=== PATIENT | male | born 1960 | race Caucasian/White ===

== ENCOUNTER 2017-05-11 02:39 | Observation (INO) | payer OTHER, SELFPAY ==
[2017-05-11] VITALS (16 sets, daily range): BP systolic 110–144; BP diastolic 65–96; PULSE 56–90; RESP 12–16; TEMP 36.4–36.8; O2SAT 96–100; BMI 30.2; BMI 30.4
--- NOTE | 2017-05-11 02:52 | RAD_ITS ---
STUDY: X-RAY CHEST REASON FOR EXAM: Male, 56 years old. Chest pain TECHNIQUE: Single frontal view of the chest. COMPARISON: 10/27/2016 FINDINGS: The lungs are clear and expanded. There is no demonstrated pleural abnormality. Normal size heart. Normal mediastinum and monster. Normal visualized pulmonary arteries. Normal visualized aortic arch and descending thoracic aorta. Normal visualized thoracic spine. Normal visualized ribs, clavicles, and shoulders. There is no demonstrated abnormality of the visualized soft tissue structures of the upper abdomen. RAD/Chest 1 View (Portable) IMPRESSION: Normal x-ray examination of the chest. Electronically Signed: Thuan Fernando MD at 3:49 EDT Tel , Service support ,
--- NOTE | 2017-05-11 02:52 | EKG12_ITS ---
Test Reason : CP Blood Pressure : / mmHG Vent. Rate : 079 BPM Atrial Rate : 079 BPM P-R Int : 178 ms QRS Dur : 092 ms QT Int : 380 ms P-R-T Axes : 060 030 047 degrees QTc Int : 435 ms Normal sinus rhythm Normal ECG Confirmed by KELLY DOUGHERTY MD ([id number]), restaurant expeditor DURAN ROBERTS ([id number] on 05/14/2017 2:21:01 PM Referred By: AYAD Confirmed By:KELLY DOUGHERTY MD
--- NOTE | 2017-05-11 02:59 | NURSING ---
NO OLD EKG
[2017-05-11 03:10] LABS: Absolute Lymphocyte Count 1.45 X10^3/ul (0.83-4.51); Absolute Neutrophil Count 3.7 X10^3/uL (2.0-7.7); Basophil# 0.02 X10^3/uL; Basophil% 0.3 % (0-1); Eosinophil# 0.18 X10^3/uL; Hematocrit 44.4 % (40-54); Hemoglobin 14.9 g/dl (13.0-16.5); Lymphocyte # 1.45 X10^3/ul (4.0); Lymphocyte % 24.5 % (19-41); Mean Corp Hgb Conc 33.6 g/gl (32-36); Mean Corpuscular Hgb 28.1 pg (27.0-32.0); Mean Corpuscular Volume 83.8 fL (80-94); Mean Platelet Vol. 9.8 fl (6.2-12.0); Monocyte# 0.52 X10^3/uL; Monocyte% 8.8 % (0-10); Neutrophil # 3.73 X10^3/uL (2.7-7.7); Neutrophil % 63.2 % (47-70); Platelet Count 140 K/mm3 (150-450); RBC Distribution Width CV 12.2 % (11.6-14.6); RBC Distribution Width SD 36.9 fl (35.1-43.9); White Blood Count 5.9 K/mm3 (4.4-11.0)
[2017-05-11 03:11] LABS: POSITIVE COUNT NO; POSITIVE DIFFERENTIAL NO; POSITIVE MORPHOLOGY NO
[2017-05-11] MEDS: 0.9% Normal Saline 1,000 ML 150 ML IV (03:11)
[2017-05-11] MEDS: Aspirin 81 MG TAB.CHEW 324 MG PO (03:13)
[2017-05-11 03:28] LABS: Anion Gap 7 (5-15); BUN 11 mg/dL (7-18); BUN/Creat Ratio 9.6 RATIO (10-20); Calcium,Total 9.1 mg/dL (8.5-10.1); Chloride 102 mmol/L (98-107); Creatinine, Serum 1.15 mg/dL (0.70-1.30); EST Glomerular Filtration Rate 70 mL/min (>60); Est Glom Filt Rate - Afr Amer 84 mL/min (>60); Estimated Creatinine Clearance 85.72 ml/min; Glucose 124 mg/dL (74-106); Lipase 130 U/L (73-393); Potassium 3.5 mmol/L (3.5-5.1); Sodium Level 140 mmol/L (136-145)
--- NOTE | 2017-05-11 04:01 | CT_ITS ---
STUDY: CTA CHEST REASON FOR EXAM: Male, 56 years old. Chest pain radiating to the back RADIATION DOSAGE (If Supplied By Facility): CTDIvol = ( 12.90 ) mGy, DLP = ( 792.31 ) mGycm TECHNIQUE: The examination was performed with the intravenous administration of 100ML ml of Isovue 370 contrast material. Post-processing of the angiographic images was performed, with multiplanar reformation and 3D reconstruction. Individualized dose optimization techniques were used for this CT. COMPARISON: None. FINDINGS: Normal enhancement of the main pulmonary artery and right and left pulmonary arteries. Normal enhancement of the bilateral peripheral pulmonary arteries. There is no demonstrated pulmonary embolism. Normal thoracic aorta and visualized great vessels. There is no demonstrated aortic dissection. Normal heart and pericardium. Normal mediastinum. Normal hilar regions. Normal visualized trachea and bronchi. The lungs are well expanded. Normal pulmonary parenchyma. Normal pleura. Normal chest wall structures. Normal osseous structures. Incompletely imaged splenomegaly. CT/CTA Chest W/WO Contrast IMPRESSION: Normal CTA chest examination, without a demonstrated pulmonary embolism or arterial dissection. Splenomegaly. Electronically Signed: Thuan Fernando MD at 4:55 EDT Tel , Service support ,
--- NOTE | 2017-05-11 04:09 | EKG12_ITS ---
Test Reason : REPEAT Blood Pressure : / mmHG Vent. Rate : 058 BPM Atrial Rate : 058 BPM P-R Int : 194 ms QRS Dur : 090 ms QT Int : 416 ms P-R-T Axes : 047 031 028 degrees QTc Int : 408 ms Sinus bradycardia Otherwise normal ECG Confirmed by LADONNA PENG, KELLY ([id number]), supervising film or videotape editor DURAN ROBERTS ([id number]) on 05/14/2017 2:20:45 PM Referred By: AYAD Confirmed By:EKLLY DOUGHERTY MD
[2017-05-11] MEDS: Nitroglycerin Oint 1 INCH PACKET TRANSDERM. (04:13)
[2017-05-11 04:31] LABS: AST(SGOT) 23 U/L (15-37); Alanine Aminotransfer ALT/SGPT 45 U/L (16-61); Albumin, Serum 4.5 g/dL (3.2-5.0); Alkaline Phosphatase 77 U/L (45-117); Bilirubin, Direct 0.16 mg/dL (0.00-0.30); Globulin 3.7 g/dL (2.2-4.2); Protein, Total 8.2 g/dL (6.4-8.2)
--- NOTE | 2017-05-11 05:28 | ED.VISSUMM ---
- ER Visit Summary Date of Service: 05/11/17 Chief Complaint: [Chest pain] History of Present Illness: The patient is a 56 M [presents to the emergency department with chest discomfort that started 6 days ago. Patient describes it as a burning retrosternally into the epigastric region that radiates to his back. Patient was seen by physician and his primary care physician's office 3 days ago and was diagnosed with gastritis or GERD and started on omeprazole. Patient continues to have the discomfort and is not affected by food at all. Patient has felt short of breath with it. Patient had a hard time sleeping the night secondary of the pain and pain in his back therefore presented to the ER for evaluation. Patient does not have any cardiac history. Patient does have a history of high cholesterol. Patient has had a bleeding ulcer 20 years ago. Patient denies black tarry stools. 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 Physical Examination: [HEENT-PERRLA, EOMI. Cranial nerves II through XII grossly intact. TMs clear. Mucous membranes moist. No adenopathy. Cardiovascular-regular rate and rhythm without murmur or ectopy Lungs-clear to auscultation, chest wall stable without crepitus or subcu emphysema Abdomen-normoactive bowel sounds, soft. Patient has mild epigastric tenderness on palpation. No rebound, rigidity, or perineal signs. Extremities-intact ?4, normal range of motion, normal pulses, atraumatic] Test Results: [EKG obtained on arrival shows sinus rhythm with a ventricular rate of 79 bpm with no acute ST segment changes. CBC with differential was normal. Chemistries were normal. LFTs were normal. Lipase was normal. D-dimer was elevated 0.50. Chest x-ray showed nothing acute. CTA of the chest was negative for PE or dissection.] Emergency Department Course and Treatment: [Patient received aspirin in the emergency department as well as sublingual nitro ?3 which mostly resolved his pain.] Treatment Plan: [Patient case was discussed with hospitalist will evaluate patient for admission] Disposition: [Admit] Impression: [Chest pain-rule out acute coronary syndrome] This note was generated with [employer] software. It may contain incorrect words, spelling, and punctuation that were not noted in review of the chart prior to signing ED Disposition - Plan for ED Patient: Chief Complaint: Chest Pain Referrals: Perico Dean MD [Primary Care Provider] -
--- NOTE | 2017-05-11 05:31 | ED.DCSUM_ITS ---
- ER Visit Summary Date of Service: 05/11/17 Chief Complaint: [Chest pain] History of Present Illness: The patient is a 56 M [presents to the emergency department with chest discomfort that started 6 days ago. Patient describes it as a burning retrosternally into the epigastric region that radiates to his back. Patient was seen by physician and his primary care physician's office 3 days ago and was diagnosed with gastritis or GERD and started on omeprazole. Patient continues to have the discomfort and is not affected by food at all. Patient has felt short of breath with it. Patient had a hard time sleeping the night secondary of the pain and pain in his back therefore presented to the ER for evaluation. Patient does not have any cardiac history. Patient does have a history of high cholesterol. Patient has had a bleeding ulcer 20 years ago. Patient denies black tarry stools. Patient's father had a small CT in his 40s. 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 Physical Examination: [HEENT-PERRLA, EOMI. Cranial nerves II through XII grossly intact. TMs clear. Mucous membranes moist. No adenopathy. Cardiovascular-regular rate and rhythm without murmur or ectopy Lungs-clear to auscultation, chest wall stable without crepitus or subcu emphysema Abdomen-normoactive bowel sounds, soft. Patient has mild epigastric tenderness on palpation. No rebound, rigidity, or perineal signs. Extremities-intact ?4, normal range of motion, normal pulses, atraumatic] Test Results: [EKG obtained on arrival shows sinus rhythm with a ventricular rate of 79 bpm with no acute ST segment changes. CBC with differential was normal. Chemistries were normal. LFTs were normal. Lipase was normal. D- dimer was elevated 0.50. Chest x-ray showed nothing acute. CTA of the chest was negative for PE or dissection.] Emergency Department Course and Treatment: [Patient received aspirin in the emergency department as well as sublingual nitro ?3 which mostly resolved his pain.] Treatment Plan: [Patient case was discussed with hospitalist will evaluate patient for admission] Disposition: [Admit] Impression: [Chest pain-rule out acute coronary syndrome] This note was generated with [employer] software. It may contain incorrect words, spelling, and punctuation that were not noted in review of the chart prior to signing ED Disposition - Plan for ED Patient: Chief Complaint: Chest Pain Referrals: Perico Dean MD [Primary Care Provider] -
--- NOTE | 2017-05-11 05:36 | PCM.HP.STD ---
History of Present Illness Date of Admission: 05/11/17 Chief Complaint: Chest pain. The patient is a 56 year old M with no significant past medical history except for peptic ulcer disease presented to the emergency room because of chest pain. His symptoms started around 5 days ago with retrosternal chest pain, intermittent, sharp pain, not radiating, sometimes extends to the epigastric region, associated with mild shortness of breath and without aggravating or relieving factors. 3 days ago, he went to his PCP who prescribed omeprazole. He mentioned that the omeprazole did not make any difference to his pain. His pain is not related to food. He denies history of smoking. His father had his first heart attack when he was in his 40s. In the emergency room, his vital signs were stable. His routine blood work was unremarkable. His LFT and lipase were normal. Chest x-ray showed no acute infiltrate, consolidation or effusion. His d-dimer was slightly elevated for which CTA chest done and showed no PE or dissection. His EKG revealed normal sinus rhythm, normal NH interval, normal QRS and no evidence of acute ischemic changes. He is being admitted for chest pain for evaluation. Past Medical History Allergies No Known Allergies Allergy (Verified 05/11/17 02:40) Home Medications: Ambulatory Orders Medication Instructions Recorded Multivitamins,Therapeutic 1 tablet PO DAILY 05/11/17 [Multivitamin] Surgical History: no surgical history Psychiatric History: No pertinent psych hx Lives: Spouse/ Significant Other Smoking Status: Never smoker Alcohol: Rare Drugs: None - *Family History Maternal History Items: No pertinent history Paternal History Items: Heart Disease, - - His father had heart attack when he was in his 40s. Review of Systems Constitutional: Denies: Anorexia, Chills, Fever, Night Sweats, Weakness Eyes: Denies: Blurred vision, Double vision, Drainage, Redness HEENT: Denies: Difficulty Hearing, Ear Pain, Eye Pain, Nasal Congestion, Sore Throat Cardiovascular: Reports: Chest Pain. Denies: Chest Tightness, Edema, Heaviness, Light Headedness, Orthopnea, Palpitations, Paroxysmal Noc. Dyspnea, Syncope Respiratory: Reports: Shortness of Breath, Sputum production. Denies: Cough, Pleuritic Pain Gastrointestinal: Reports: Dyspepsia. Denies: Abdominal Pain, Constipation, Diarrhea, Nausea, Vomiting Genitourinary: Denies: Dysuria, Frequency, Hematuria Musculoskeletal: Denies: Arm Pain, Back Pain, Foot Pain Skin: Denies: Dryness, Rash Neurological: Denies: Balance problems, Blurred vision, Double vision, Change in Speech, Slurred speech, Focal weakness, Headaches, Incoordination Psychiatric: Denies: Anxiety, Depression VTE Information - Inpt Only VTE Present on Admission: No VTE Mechan Device Prophylaxis: None VTE Pharm Prophylaxis ordered?: No - Physical Exam General: Alert, Oriented x3, Cooperative, No apparent distress HEENT: Atraumatic, PERRLA, EOMI Oral: Moist Mucosa, No Gingival or Mucosal Lesions/ Ulcerations Neck: Supple, No JVD, Negative Carotid Bruits, Trachea Midline, Thyroid Normal Size and Texture Lungs: Clear to auscultation, Normal air movement, No rhonchi, No wheeze, No rales Cardiovascular: Regular rate, Regular Rhythm, Normal S1, Normal S2, No murmurs, PMI Normal Abdomen: Bowel Sounds Present, Soft, Non Tender, Non-Distended, No Hepato-splenomegaly Extremities: No clubbing, No cyanosis, No edema Skin: No rashes, No breakdown Lymphatic: No Cervical, Supraclavicular, or Inguinal Adenopathy Neurological: Cranial nerves II-XII grossly intact, Motor Exam 5/5 strength throughout Psych/Mental Status: Normal Affect, Appropriate, Alert and oriented to time, place, person, mood and affect Vital Signs Temp Pulse Resp BP Pulse Ox 97.6 F L 62 16 119/83 H 100 05/11/17 05:30 05/11/17 05:30 05/11/17 05:30 05/11/17 05:30 05/11/17 05:30 Oxygen Delivery Method Room Air Weight: 241 lb 6.499 oz Body Mass Index (BMI) 30.2 Laboratory Tests Past 24 Hrs 05/11/17 05/11/17 05/11/17 02:45 02:45 02:45 WBC 5.9 RBC 5.30 Hgb 14.9 Hct 44.4 MCV 83.8 MCH 28.1 MCHC 33.6 RDW 12.2 RDW Differential 36.9 Plt Count 140 L MPV 9.8 Immature Gran % (Auto) 0.200 Neut % (Auto) 63.2 Lymph % (Auto) 24.5 [place] % (Auto) 8.8 Eos % (Auto) 3.0 Baso % (Auto) 0.3 Absolute Neuts (auto) 3.7 Absolute Lymphs (auto) 1.45 Total Counted Not Reportable D-Dimer Quant (PE/DVT) 0.50 H Sodium 140 Potassium 3.5 Chloride 102 Carbon Dioxide 31.0 Anion Gap 7 BUN 11 Creatinine 1.15 Estim Creat Clear Calc 85.72 Est GFR (MDRD) Af Amer 84 Est GFR (MDRD) Non-Af 70 BUN/Creatinine Ratio 9.6 L Glucose 124 H Calcium 9.1 Total Bilirubin Direct Bilirubin AST ALT Alkaline Phosphatase Troponin I < 0.02 Total Protein Albumin Globulin Lipase 130 05/11/17 02:45 WBC RBC Hgb Hct MCV MCH MCHC RDW RDW Differential Plt Count MPV Immature Gran % (Auto) Neut % (Auto) Lymph % (Auto) [place] % (Auto) Eos % (Auto) Baso % (Auto) Absolute Neuts (auto) Absolute Lymphs (auto) Total Counted D-Dimer Quant (PE/DVT) Sodium Potassium Chloride Carbon Dioxide Anion Gap BUN Creatinine Estim Creat Clear Calc Est GFR (MDRD) Af Amer Est GFR (MDRD) Non-Af BUN/Creatinine Ratio Glucose Calcium Total Bilirubin 0.70 Direct Bilirubin 0.16 AST 23 ALT 45 Alkaline Phosphatase 77 Troponin I Total Protein 8.2 Albumin 4.5 Globulin 3.7 Lipase Clinical Impression(s) from Imaging Studies Chest X-Ray 05/11/17 02:52 IMPRESSION: Normal x-ray examination of the chest. Electronically Signed: Thuan Fernando MD at 3:49 EDT Tel , Service support , Chest CTA 05/11/17 04:01 IMPRESSION: Normal CTA chest examination, without a demonstrated pulmonary embolism or arterial dissection. Splenomegaly. Electronically Signed: Thuan Fernando MD at 4:55 EDT Tel , Service support , Assessment/Plan This is a 56 years old male patient presented to the emergency room because of chest pain and he is being admitted for evaluation. #1 chest pain: With positive family history of premature CAD. His initial EKG and troponin was unremarkable. D-dimer was slightly elevated for which CTA chest done and revealed no PE or dissection. Chest x-ray without acute findings. First troponin is negative. Plan: Admit to PCU for observation, cardiac monitoring, serial cardiac enzymes, nuclear stress test this morning after the second heart enzyme if it came back negative, Protonix twice daily, Mylanta as needed. #2 history of peptic ulcer disease: Protonix twice daily. He denied hematemesis or melena. His pain is not related to food. #3 DVT prophylaxis: Low risk patient, no prophylaxis indicated. This note was generated with [employer] dictation software. It may contain incorrect words, spelling, and punctuation that were not noted in checking the note before signing. Code Visit OBSV E&M: 42811 Initial observation care L3
--- NOTE | 2017-05-11 05:43 | HP.PCM_ITS ---
History of Present Illness Date of Admission: 05/11/17 Chief Complaint: Chest pain. The patient is a 56 year old M with no significant past medical history except for peptic ulcer disease presented to the emergency room because of chest pain. His symptoms started around 5 days ago with retrosternal chest pain, intermittent, sharp pain, not radiating, sometimes extends to the epigastric region, associated with mild shortness of breath and without aggravating or relieving factors. 3 days ago, he went to his PCP who prescribed omeprazole. He mentioned that the omeprazole did not make any difference to his pain. His pain is not related to food. He denies history of smoking. His father had his first heart attack when he was in his 40s. In the emergency room, his vital signs were stable. His routine blood work was unremarkable. His LFT and lipase were normal. Chest x-ray showed no acute infiltrate, consolidation or effusion. His d-dimer was slightly elevated for which CTA chest done and showed no PE or dissection. His EKG revealed normal sinus rhythm, normal RI interval, normal QRS and no evidence of acute ischemic changes. He is being admitted for chest pain for evaluation. Past Medical History Allergies No Known Allergies Allergy (Verified 05/11/17 02:40) Home Medications: Ambulatory Orders Medication Instructions Recorded Multivitamins,Therapeutic 1 tablet PO DAILY 05/11/17 [Multivitamin] Surgical History: no surgical history Psychiatric History: No pertinent psych hx Lives: Spouse/ Significant Other Smoking Status: Never smoker Alcohol: Rare Drugs: None - *Family History Maternal History Items: No pertinent history Paternal History Items: Heart Disease, - - His father had heart attack when he was in his 40s. Review of Systems Constitutional: Denies: Anorexia, Chills, Fever, Night Sweats, Weakness Eyes: Denies: Blurred vision, Double vision, Drainage, Redness HEENT: Denies: Difficulty Hearing, Ear Pain, Eye Pain, Nasal Congestion, Sore Throat Cardiovascular: Reports: Chest Pain. Denies: Chest Tightness, Edema, Heaviness , Light Headedness, Orthopnea, Palpitations, Paroxysmal Noc. Dyspnea, Syncope Respiratory: Reports: Shortness of Breath, Sputum production. Denies: Cough, Pleuritic Pain Gastrointestinal: Reports: Dyspepsia. Denies: Abdominal Pain, Constipation, Diarrhea, Nausea, Vomiting Genitourinary: Denies: Dysuria, Frequency, Hematuria Musculoskeletal: Denies: Arm Pain, Back Pain, Foot Pain Skin: Denies: Dryness, Rash Neurological: Denies: Balance problems, Blurred vision, Double vision, Change in Speech, Slurred speech, Focal weakness, Headaches, Incoordination Psychiatric: Denies: Anxiety, Depression VTE Information - Inpt Only VTE Present on Admission: No VTE Mechan Device Prophylaxis: None VTE Pharm Prophylaxis ordered?: No - Physical Exam General: Alert, Oriented x3, Cooperative, No apparent distress HEENT: Atraumatic, PERRLA, EOMI Oral: Moist Mucosa, No Gingival or Mucosal Lesions/ Ulcerations Neck: Supple, No JVD, Negative Carotid Bruits, Trachea Midline, Thyroid Normal Size and Texture Lungs: Clear to auscultation, Normal air movement, No rhonchi, No wheeze, No rales Cardiovascular: Regular rate, Regular Rhythm, Normal S1, Normal S2, No murmurs, PMI Normal Abdomen: Bowel Sounds Present, Soft, Non Tender, Non-Distended, No Hepato- splenomegaly Extremities: No clubbing, No cyanosis, No edema Skin: No rashes, No breakdown Lymphatic: No Cervical, Supraclavicular, or Inguinal Adenopathy Neurological: Cranial nerves II-XII grossly intact, Motor Exam 5/5 strength throughout Psych/Mental Status: Normal Affect, Appropriate, Alert and oriented to time, place, person, mood and affect Vital Signs Temp Pulse Resp BP Pulse Ox 97.6 F L 62 16 119/83 H 100 05/11/17 05:30 05/11/17 05:30 05/11/17 05:30 05/11/17 05:30 05/11/17 05:30 Oxygen Delivery Method Room Air Weight: 241 lb 6.499 oz Body Mass Index (BMI) 30.2 Laboratory Tests Past 24 Hrs 05/11/17 05/11/17 05/11/17 02:45 02:45 02:45 WBC 5.9 RBC 5.30 Hgb 14.9 Hct 44.4 MCV 83.8 MCH 28.1 MCHC 33.6 RDW 12.2 RDW Differential 36.9 Plt Count 140 L MPV 9.8 Immature Gran % (Auto) 0.200 Neut % (Auto) 63.2 Lymph % (Auto) 24.5 [place] % (Auto) 8.8 Eos % (Auto) 3.0 Baso % (Auto) 0.3 Absolute Neuts (auto) 3.7 Absolute Lymphs (auto) 1.45 Total Counted Not Reportable D-Dimer Quant (PE/DVT) 0.50 H Sodium 140 Potassium 3.5 Chloride 102 Carbon Dioxide 31.0 Anion Gap 7 BUN 11 Creatinine 1.15 Estim Creat Clear Calc 85.72 Est GFR (MDRD) Af Amer 84 Est GFR (MDRD) Non-Af 70 BUN/Creatinine Ratio 9.6 L Glucose 124 H Calcium 9.1 Total Bilirubin Direct Bilirubin AST ALT Alkaline Phosphatase Troponin I < 0.02 Total Protein Albumin Globulin Lipase 130 05/11/17 02:45 WBC RBC Hgb Hct MCV MCH MCHC RDW RDW Differential Plt Count MPV Immature Gran % (Auto) Neut % (Auto) Lymph % (Auto) [place] % (Auto) Eos % (Auto) Baso % (Auto) Absolute Neuts (auto) Absolute Lymphs (auto) Total Counted D-Dimer Quant (PE/DVT) Sodium Potassium Chloride Carbon Dioxide Anion Gap BUN Creatinine Estim Creat Clear Calc Est GFR (MDRD) Af Amer Est GFR (MDRD) Non-Af BUN/Creatinine Ratio Glucose Calcium Total Bilirubin 0.70 Direct Bilirubin 0.16 AST 23 ALT 45 Alkaline Phosphatase 77 Troponin I Total Protein 8.2 Albumin 4.5 Globulin 3.7 Lipase Clinical Impression(s) from Imaging Studies Chest X-Ray 05/11/17 02:52 IMPRESSION: Normal x-ray examination of the chest. Electronically Signed: Thuan Fernando MD at 3:49 EDT Tel , Service support , Chest CTA 05/11/17 04:01 IMPRESSION: Normal CTA chest examination, without a demonstrated pulmonary embolism or arterial dissection. Splenomegaly. Electronically Signed: Thuan Fernando MD at 4:55 EDT Tel , Service support , Assessment/Plan This is a 56 years old male patient presented to the emergency room because of chest pain and he is being admitted for evaluation. #1 chest pain: With positive family history of premature CAD. His initial EKG and troponin was unremarkable. D-dimer was slightly elevated for which CTA chest done and revealed no PE or dissection. Chest x-ray without acute findings. First troponin is negative. Plan: Admit to PCU for observation, cardiac monitoring, serial cardiac enzymes, nuclear stress test this morning after the second heart enzyme if it came back negative, Protonix twice daily, Mylanta as needed. #2 history of peptic ulcer disease: Protonix twice daily. He denied hematemesis or melena. His pain is not related to food. #3 DVT prophylaxis: Low risk patient, no prophylaxis indicated. This note was generated with [employer] dictation software. It may contain incorrect words, spelling, and punctuation that were not noted in checking the note before signing. Code Visit OBSV E&M: 92586 Initial observation care L3
[2017-05-11 07:02] LABS: Cholesterol 118 mg/dL (200); High Density Lipoprotein 26 mg/dL; Triglycerides 314 mg/dL; Very Low Density Lipoprotein 63 mg/dL (5-40)
[2017-05-11 07:03] LABS: International Normalized Ratio 1.1; Prothrombin Time (Protime)PT. 14.1 SECONDS (11.7-14.9)
[2017-05-11] MEDS: Pantoprazole Sodium 40 MG Tablet PO (08:58)
[2017-05-11] MEDS: 0.9% NaCl Peripheral Flush Adult/Peds IV (09:01)
[2017-05-11] MEDS: Acetaminophen 325 MG Tablet 650 MG PO (11:06)
--- NOTE | 2017-05-11 12:00 | STRESSREP ---
Stress Test Report Exercise myocardial perfusion stress test. 56-year-old male with a history of chest pain and peptic ulcer disease. Stress protocol: Resting EKG demonstrates normal sinus rhythm with a rate of 64 bpm normal intervals and noted resting blood pressure is 132/90 mmHg. The patient exercised according to the regular Luke protocol for total duration of 9 minutes and 30 seconds completing 30 seconds to stage IV of the Luke protocol. The maximum heart rate attained was 176 beats minute was 107% maximum predicted heart rate the maximum workload attained was 11.1 metabolic equivalents. At rest there were no ST or T-wave changes noted suggest ischemia peak exercise no ST or T-wave changes were noted suggest ischemia occasional premature ventricular complexes only were noted no clinical angina was noted the test was terminated due to leg fatigue. The resting blood pressure was 1 and 32/90 mmHg with a peak blood pressure 188/70 mmHg. Myocardial perfusion protocol. 15.0 mCi of technetium 99m sestamibi was injected at rest. The patient exercised according to regular Luke protocol for 9 minutes and 30 seconds attaining 107% maximum predicted heart rate the maximum workload attained was 11.1 metabolic equivalents at peak exercise 44.4 mCi of technetium 99m sestamibi was injected stress images were obtained stress and rest images were reconstructed and compared in the short axis vertical long horizontal long axis. Gated images were also obtained pre- Perfusion SPECT analysis: Review of the stress images demonstrate normal uptake of tracer noted in all areas of the myocardium. The resting images similarly demonstrate normal uptake of tracer noted in all areas of the myocardium. No areas of reversibility are noted suggest ischemia. Gated SPECT analysis. The gated ejection fraction is noted be 59%. Conclusion Normal exercise myocardial perfusion stress test. Excellent functional capacity. Preserved ejection fraction.
--- NOTE | 2017-05-11 12:32 | PCM.DC ---
- Discharge Diagnoses Reason(s) for Visit for Discharge Instructions: Chest pain You will use the following diet at home:: Cardiac Your food should be the consistency of: Regular Your liquids should be the consistency of: Regular/Thin Discharge Activity: Return to Normal Activity Additional Instructions: Take your omeprazole twice a day. Exercise daily, follow-up with Dr. Phan and your primary care doctor within 2 weeks. Avoid alcohol. Take Mylanta as needed for reflux symptoms or belching. Allergies/Adverse Reactions: Allergies No Known Allergies Allergy (Verified 05/11/17 02:40) Medications to take at Discharge Mag Hydrox/Al Hydrox/Simeth [Mylanta II] 30 ml PO Q6H PRN PRN #1 bottle 05/11/17 Multivitamins,Therapeutic [Multivitamin] 1 tablet PO DAILY 05/11/17 [place]-3 Fatty Acids/Fish Oil [Fish Oil 1,000 mg Capsule] 1,000 mg PO DAILY 05/11/17 Omeprazole 40 mg PO DAILY 05/11/17 Saw [place] Fruit [Saw [place]] 450 mg PO DAILY 05/11/17 The following prescriptions were given: Mag Hydrox/Al Hydrox/Simeth [Mylanta II] 30 ml PO Q6H PRN PRN #1 bottle PRN Reason: Heartburn, Primary Care Physician: Perico Dean MD [Primary Care Provider] - Please follow up with your Primary Care Physician in: within 2 weeks Please Follow Up With: Ramón Phan MD When: within 2 weeks Proposed Discharge Date: 05/11/17
--- NOTE | 2017-05-11 12:35 | DCINST_ITS ---
- Discharge Diagnoses Reason(s) for Visit for Discharge Instructions: Chest pain You will use the following diet at home:: Cardiac Your food should be the consistency of: Regular Your liquids should be the consistency of: Regular/Thin Discharge Activity: Return to Normal Activity Additional Instructions: Take your omeprazole twice a day. Exercise daily, follow-up with Dr. Phan and your primary care doctor within 2 weeks. Avoid alcohol. Take Mylanta as needed for reflux symptoms or belching. Allergies/Adverse Reactions: Allergies No Known Allergies Allergy (Verified 05/11/17 02:40) Medications to take at Discharge Mag Hydrox/Al Hydrox/Simeth [Mylanta II] 30 ml PO Q6H PRN PRN #1 bottle Multivitamins,Therapeutic [Multivitamin] 1 tablet PO DAILY 05/11/17 [place]-3 Fatty Acids/Fish Oil [Fish Oil 1,000 mg Capsule] 1,000 mg PO DAILY 05/11 Omeprazole 40 mg PO DAILY 05/11/17 Saw [place] Fruit [Saw [place]] 450 mg PO DAILY 05/11/17 The following prescriptions were given: Mag Hydrox/Al Hydrox/Simeth [Mylanta II] 30 ml PO Q6H PRN PRN #1 bottle PRN Reason: Heartburn, Primary Care Physician: Perico Dean MD [Primary Care Provider] - Please follow up with your Primary Care Physician in: within 2 weeks Please Follow Up With: Ramón Phan MD When: within 2 weeks Proposed Discharge Date: 05/11/17
--- NOTE | 2017-05-11 12:35 | PCM.DC.SUM ---
Discharge Date and Diagnosis Date of Admission: 05/11/17 Date of Discharge: 05/11/17 - Primary Discharge Diagnosis Chest pain, atypical, noncardiac, GERD - Secondary Discharge Diagnosis History of peptic ulcer disease Hospital Course and Treatment Imaging Results: 05/11/17 05:55 Nuclear Stress Test - Treadmil [NM] Routine None Operations: None Procedures: None Summary of Care Provided: 56 years old male with PMHx of PUD, hyperlipidemia admitted with sudden onset of chest pain, retrosternal, intermittent, sharp, non-radiating. He had a strong family history of premature CAD. His admitting vitals were stable, she was negative for any acute abnormality, admitting blood work was unremarkable, CT of the chest was negative for any acute PE. EKG shows normal sinus rhythm no acute ST-T changes. He was admitted to a telemetry bed with no acute events, underwent a stress test which was negative. 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 Discharge Diet: Low fat/ Low Cholesterol, 2000 mg Sodium Diet Discharge Activity: Return to Normal Activity Home Medications: Medications to take at Discharge Mag Hydrox/Al Hydrox/Simeth [Mylanta II] 30 ml PO Q6H PRN PRN #1 bottle 05/11/17 Multivitamins,Therapeutic [Multivitamin] 1 tablet PO DAILY 05/11/17 [place]-3 Fatty Acids/Fish Oil [Fish Oil 1,000 mg Capsule] 1,000 mg PO DAILY 05/11/17 Omeprazole 40 mg PO DAILY 05/11/17 Saw [place] Fruit [Saw [place]] 450 mg PO DAILY 05/11/17 Following Prescrptions Were Given to Patient: Mag Hydrox/Al Hydrox/Simeth [Mylanta II] 30 ml PO Q6H PRN PRN #1 bottle PRN Reason: Heartburn, Primary Care Physician: Perico Dean MD [Primary Care Provider] - Please follow up with your Primary Care Physician in: within 2 weeks Please Follow Up With: Ramón Phan MD When: within 2 weeks Disposition: Home Minutes spent on discharge:: 25 Patient Condition:: Stable Medical Necessity - Tobacco Use Smoking Status: Never smoker Meaningful Use Info Meaningful Use Diagnoses (Choose all that apply): None applicable Code Visit Inpatient E&M: 37562 Disch Hosp
== END 2017-05-11 12:33 | disposition home or self-care (01) ==
LOC: ED 04:09 → PCU 05:40
PROVIDERS: Admitting Provider Hospitalist; Emergency Provider Emergency Medicine; Family Provider Family Medicine; PCP Family Medicine; Visit Provider Internal Medicine
DX: R07.89 Other chest pain (principal); K21.9 Gastro-esophageal reflux disease without esophagitis; Z87.11 Personal history of peptic ulcer disease; E78.5 Hyperlipidemia, unspecified; Z82.49 Family history of ischemic heart disease and other diseases of the circulatory system; Z79.899 Other long term (current) drug therapy
CPT/HCPCS: 36415; 71045; 71275; 78452; 80048; 80061; 80076; 83690; 84484; 85025; 85379; 85610; 85730; 93005; 93017; 96360; 96361; 99218; 99285; A9500; J7030; Q9967; A4216; G0378

== ENCOUNTER → 2017-06-01 09:03 | Outpatient (CLI) | payer OTHER, SELFPAY ==
[2017-06-01 11:03] LABS: BUN 22 mg/dL (7-18); Creatinine, Serum 1.12 mg/dL (0.70-1.30); EST Glomerular Filtration Rate 72 mL/min (>60); Glucose 98 mg/dL (74-106)
[2017-06-01 11:04] LABS: ALB/GLOB Ratio 1.3 RATIO (0.9-2.4); AST(SGOT) 15 U/L (15-37); Alanine Aminotransfer ALT/SGPT 34 U/L (16-61); Albumin, Serum 4.3 g/dL (3.2-5.0); Alkaline Phosphatase 55 U/L (45-117); Anion Gap 8 (5-15); BUN/Creat Ratio 19.6 RATIO (10-20); Calcium,Total 8.8 mg/dL (8.5-10.1); Chloride 108 mmol/L (98-107); Est Glom Filt Rate - Afr Amer 87 mL/min (>60); Globulin 3.4 g/dL (2.2-4.2); PSA,Total - Annual Screen 0.59 ng/mL (0.00-4.00); Potassium 4.1 mmol/L (3.5-5.1); Protein, Total 7.7 g/dL (6.4-8.2); Sodium Level 141 mmol/L (136-145)
== END ==
PROVIDERS: Family Provider Family Medicine; PCP Family Medicine; Visit Provider Family Medicine
DX: Z12.5 Encounter for screening for malignant neoplasm of prostate (principal); R10.13 Epigastric pain
CPT/HCPCS: 36415; 80053; 84153; G0103

== ENCOUNTER → 2017-06-04 08:02 | Outpatient (CLI) | payer OTHER, SELFPAY ==
--- NOTE | 2017-06-04 08:16 | US_ITS ---
STUDY: ABDOMINAL ULTRASOUND REASON FOR EXAM: Male, 56 years old. Dyspepsia, TECHNIQUE: Transabdominal ultrasound was performed with real-time and static hong scale imaging. TECHNICAL QUALITY: Adequate. COMPARISON: None. FINDINGS: Liver: The liver measures 15.6 cm. There is a heterogeneous echogenicity of the liver. The bile ducts are within normal limits. There is hepatic color flow. The direction of portal flow is hepatopetal. There is no demonstrated mass lesion. Portal vein measurement: Gallbladder: Normal distended gallbladder. The gallbladder wall measures 2.6 mm. There is a negative sonographic Smith's sign. There is no pericholecystic fluid. There are no gallstones. Common Bile Duct (C.B.D.): The common bile duct measures 2.0 mm. Pancreas: Visualized pancreas is sonographically normal Spleen: Normal size of the spleen. The spleen measures 13.8 cm. Right Kidney: Normal size of the right kidney. The right kidney measures 12.6 x 5.2 x 6.6 cm. Normal renal cortex. The right cortex measures 2.2 cm. There is no demonstrated renal mass or cyst. There is no right hydronephrosis. Left Kidney: Normal size of the left kidney. The left kidney measures 14.6 x 5.4 x 5.9 cm. Normal renal cortex. The left cortex measures 2.4 cm. There is a simple 1.9 cm cyst. There is no left hydronephrosis, there is mild prominence to the left renal pelvis.. Aorta: Tapers normally I.V.C.: The IVC is patent. There is no ascites. US/Abdomen Complete IMPRESSION: Mild fatty infiltration of liver, no discrete lesion. Sonographically normal bladder Simple left renal cyst, mildly prominent left UPJ Electronically Signed: Russell Trniidad MD at 9:51 EDT , Service support ,
[2017-06-07 10:07] LABS: H. PYLORI STOOL AG Negative (Negative)
== END ==
PROVIDERS: Family Provider Family Medicine; PCP Family Medicine; Visit Provider Family Medicine
DX: K76.0 Fatty (change of) liver, not elsewhere classified (principal); N28.1 Cyst of kidney, acquired; R10.13 Epigastric pain
CPT/HCPCS: 76700; 89055

== ENCOUNTER → 2017-06-08 09:24 | Outpatient (CLI) | payer OTHER, SELFPAY ==
--- NOTE | 2017-06-08 09:40 | RAD_ITS ---
STUDY: SMALL BOWEL FOLLOW-THROUGH STUDY REASON FOR EXAM: Male, 56 years old. DYSPEPSIA, GERD AND STOMACH PAIN X 1 MONTH. RADIATION DOSAGE (If Supplied By Facility): CTDIvol = ( ) mGy, DLP = ( ) mGycm FLUOROSCOPY TIME (if supplied): (2:40) minutes/seconds TECHNIQUE: Barium pill swallow with sips of water is performed at the beginning of the study without difficulty. Multiple barium swallows were performed under fluoroscopic monitoring. Multiple views of the esophagus, the stomach and the duodenum were performed. Multiple views of the abdomen were performed after barium ingestion fluoroscopic examination of the terminal ileal loop is also performed with multiple spot views were obtained. 8 overhead films were obtained. FINDINGS: UPPER GI STUDY: The esophagus appears normal in size and shape it shows unremarkable mucosal pattern. There is no evidence of hiatal hernia or abnormal vascular compression. The stomach is normal in size shape and position the gastric mucosal folds are unremarkable. The duodenum and bulb and duodenal loop are unremarkable. The duodenal jejunal junction is in normal anatomic position to the left of the vertebral body of T12. SMALL BOWEL FOLLOW-THROUGH: Normal progression of barium is seen throughout different parts of the small bowel the cecum is reached at approximately 30 minutes after barium ingestion. The duodenum, jejunum, and ileum mucosal pattern is unremarkable. Fluoroscopic examination of the terminal loop shows no abnormality. RAD/Upper GI/w Small Bowel IMPRESSION: Unremarkable study. Electronically Signed: Abraham Gaspar MD at 6:35 EDT Tel , Service support ,
== END ==
PROVIDERS: Family Provider Family Medicine; PCP Family Medicine; Visit Provider Family Medicine
DX: R10.13 Epigastric pain (principal)
CPT/HCPCS: 74249

== ENCOUNTER → 2017-11-26 08:51 | Outpatient (CLI) | payer OTHER, SELFPAY ==
[2017-11-26 11:04] LABS: ALB/GLOB Ratio 1.1 RATIO (0.9-2.4); AST(SGOT) 17 U/L (15-37); Alanine Aminotransfer ALT/SGPT 43 U/L (16-61); Alkaline Phosphatase 61 U/L (45-117); Anion Gap 9 (5-15); BUN 21 mg/dL (7-18); BUN/Creat Ratio 19.3 RATIO (10-20); Calcium,Total 8.6 mg/dL (8.5-10.1); Chloride 102 mmol/L (98-107); Cholesterol 144 mg/dL (200); Creatinine, Serum 1.09 mg/dL (0.70-1.30); EST Glomerular Filtration Rate 74 mL/min (>60); Est Glom Filt Rate - Afr Amer 90 mL/min (>60); Globulin 3.6 g/dL (2.2-4.2); Glucose 107 mg/dL (74-106); High Density Lipoprotein 36 mg/dL; Protein, Total 7.6 g/dL (6.4-8.2); Sodium Level 138 mmol/L (136-145); Triglycerides 266 mg/dL; Very Low Density Lipoprotein 53 mg/dL (5-40)
[2017-11-26 12:38] LABS: Bacteria 0 SEEN /hpf (None Seen); Mucous, Urine 0 SEEN /hpf (<or=2+); Red Blood Cells-Urine 0 SEEN /hpf (0-5); White Blood Cells 0 SEEN /hpf (0-5)
[2017-11-26 12:55] LABS: Color, Urine Yellow (Yellow); Glucose, Dipstick Normal (Normal); Ketone-Dipstick Negative (Negative); Leukocyte Esterase-Dipstick Negative /ul (Negative); Nitrite-Dipstick Negative (Negative); Occult Blood-Urine Negative /ul (Negative); Protein-Dipstick Negative (Negative); Urine Bilirubin Dipstick Negative (Negative); Urine Clarity Clear (Clear); Urine Urobilinogen Normal (Normal)
[2017-11-26 13:20] LABS: Squamous Epithelial Cells - UA 0-5 SEEN /hpf (0-5)
== END ==
PROVIDERS: Family Provider Family Medicine; PCP Family Medicine; Referring Provider Family Medicine; Visit Provider Family Medicine
DX: R31.0 Gross hematuria (principal)
CPT/HCPCS: 36415; 80053; 80061; 81001; 87086

== ENCOUNTER → 2018-02-06 09:42 | Outpatient (CLI) | payer OTHER, SELFPAY ==
--- NOTE | 2018-02-06 09:47 | ART_ITS ---
Version 2 Reason For Study: Leg cramping Procedure A bilateral lower extremity continuous wave Doppler with analog waveform analysis and ankle brachial indexes. Left Segmental Pressures Left brachial= 134mmHg. Left posterior tibial artery = 179mmHg. Left dorsalis pedis artery = 173mmHg. The left dorsalis pedis waveforms are triphasic. The left posterior tibial artery waveforms are triphasic. Right Segmental Pressures Right brachial= 146mmHg. Right posterior tibial artery = 184mmHg. Right dorsalis pedis artery = 170mmHg. The right dorsalis pedis waveforms are triphasic. The right posterior tibial artery waveforms are triphasic. Indices The right ankle brachial index by the dorsalis pedis is 1.2. The right ankle brachial index by the posterior tibial artery is 1.3. The right post exercise ankle brachial index is 1.3. The left ankle brachial index by the dorsalis pedis is 1.2. The left ankle brachial index by the posterior tibial artery is 1.2. The left post exercise ankle brachial index is 1.3. Interpretation Summary Triphasic waveforms are noted at ankle level bilaterally. Resting ankle-brachial indices appear bilaterally normal. Following a period of exercise, ankle pressures augment bilaterally, which is a normal physiological response. There is no evidence of significant arterial occlusive disease on either side. Ordering Physician: Perico Dean Referring Physician: Perico Dean Performed By: Jaclyn Patricio RVT
--- NOTE | 2018-02-06 13:28 | NEURO ---
NCS and/or EMG Patient Report Ordering Doctor: Perico Dean DATE OF SERVICE: 02/06/18 Christoph Baptiste is a 57-year-old male presents for electrodiagnostic testing of the lower limbs. He reports numbness and tingling in the toes, which have been worsening for the past few months. Electrodiagnostic findings: Peroneal motor nerve demonstrates normal distal latency, amplitude and conduction velocity bilaterally. Normal tibial motor response bilaterally. Prolonged tibial and peroneal F-wave. Prolonged H reflex bilaterally. Borderline prolonged sural latencies noted bilaterally. Normal superficial peroneal latency bilaterally. Absent plantar responses. Next Needle EMG testing shows no evidence of denervation with normal motor unit action potentials. Next Electrodiagnostic impression: This is an abnormal study in the lower limbs. 1. 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 2. No electrodiagnostic evidence is noted for lumbosacral radiculopathy. If there are any further questions, please do not hesitate to contact me.
== END ==
PROVIDERS: Family Provider Family Medicine; PCP Family Medicine; Referring Provider Family Medicine; Visit Provider Family Medicine
DX: G62.9 Polyneuropathy, unspecified (principal); R25.2 Cramp and spasm
CPT/HCPCS: 93922; 95886; 95912

== ENCOUNTER 2020-02-05 10:50 | Emergency (ER) | payer OTHER, SELFPAY ==
[2020-02-05 10:52] VITALS: BP 144/109; PULSE 112; RESP 16; TEMP 36.5; O2SAT 97; BMI 30.4
--- NOTE | 2020-02-05 11:01 | EKG12_ITS ---
Test Reason : NEURO S\SX Blood Pressure : / mmHG Vent. Rate : 090 BPM Atrial Rate : 090 BPM P-R Int : 178 ms QRS Dur : 082 ms QT Int : 346 ms P-R-T Axes : 055 032 052 degrees QTc Int : 423 ms Normal sinus rhythm Normal ECG Confirmed by LADONNA PENG, KELLY ([id number]), risk control field representative DORENE RODGERS ([id number]) on 02/09/2020 9:02:30 AM Referred By: BILL Confirmed By:KELLY DOUGHERTY MD
--- NOTE | 2020-02-05 11:03 | ED.DCSUM_ITS ---
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 He also felt a little lightheaded, he felt no palpitations. He then noticed he was feeling some tingling in his left hand, that did not last very long and went away. He states he feels like both of his ears are a little clogged but denies any earache or tinnitus. No headache, vision changes, or near syncope. He denies vertiginous symptoms or nausea. No recent illness or injury. He has not had Covid this year that he knows of, nor is he had contact with anybody that he knows of who has had it. He has a history of varicose veins in both of his legs, he states that he pulls his socks up to kind of act like compression stockings, he has never had a blood clot that he knows of. He is healthy and takes no prescriptions, although because of all of this and wanting to be careful he took 2 baby aspirin this morning. Prior similar symptoms: Yes - unk cause Recent Illness/Hospitalization: No Past Medical History - Allergies and Home Meds Allergies/Adverse Reactions: Allergies No Known Allergies Allergy (Verified 02/05/20 10:51) Primary Care Physician: Perico Dean MD [Primary Care Provider] - Past Medical History: None Surgical History: no surgical history Smoking Status: Never smoker - Family History Maternal Family History: Reports: No pertinent history Paternal Family History: Reports: Heart Disease, - - His father had heart attack when he was in his 40s. Review of Systems General: Denies: Chills, Fever, Sweats Eyes: Denies: Visual changes - bilaterally, Diplopia ENT: Reports: - - decreased hearing bilat mild this AM, - - No tinnitus. Denies: Bilateral ear pain, Rhinorrhea, Sore throat Cardiovascular: Denies: Chest pain, Palpitations, Heart racing Respiratory: Reports: Dyspnea. Denies: Cough, Dyspnea on exertion, Orthopnea, Paroxysmal nocturnal dyspnea Gastrointestinal: Denies: Abdominal pain, Nausea, Vomiting, Diarrhea, Melena, Hematochezia Genitourinary: Denies: Dysuria, Hematuria, Frequency Musculoskeletal: Denies: Myalgias, Neck pain, Back pain, Swelling, Extremity Pain Skin: Denies: Rash, Wounds Neurological: Reports: Parasthesia. Denies: Headache, Weakness Physical Exam Vital Signs/Narrative: Vital Signs Temp Pulse Resp BP Pulse Ox 02/05/20 10:52 97.7 F L 112 H 16 144/109 H 97 Inital Vital Signs reviewed: Yes General: Well nourished, Well developed, No Acute Distress Head: Normocephalic, Atraumatic Eyes: Perrl, EOMI ENT: Moist mucous membranes, No rhinorrhea, - - POP clear Neck: Supple, Nontender, No lymphadenopathy, No JVD Cardiovascular: Regular rate, Regular rhythm, No murmurs. Negative for: Tachycardia Respiratory: No distress, CTA bilaterally, Chest nontender Abdomen: Soft, Nontender, Nondistended, Normal bowel sounds Back: Nontender, Normal Inspection. Negative for: CVA tenderness Extremities: Nontender, No edema, - - bilat lower leg varicosities, no palpable cords or erythema Skin: Normal color, No rash, No Trauma Neurological: Alert, Oriented x3, Cranial nerves II-XII grossly intact, Normal Strength, Normal Sensation, Normal Gait Psychological: Normal affect, Normal Mood Diagnostic/Tx/Re-eval Chest X-Ray - ED: 1 View, Read by ED Physician, Normal, Heart, Lungs, Mediastinum, No Acute Disease Impressions Chest X-Ray 02/05/20 11:38 IMPRESSION: Normal x-ray examination of the chest. Electronically Signed: Tc Hutton MD at 12:11 EST Tel , Service support , 02/05/20 11:38 Chest 1 View (Portable) [RAD] Stat Laboratory Results 02/05/20 02/05/20 02/05/20 11:05 11:05 11:05 WBC 7.2 RBC 5.72 Hgb 15.7 Hct 47.1 MCV 82.3 MCH 27.4 MCHC 33.3 RDW Std Deviation 35.4 RDW Coeff of Isaias 11.9 Plt Count 200 MPV 9.7 Immature Gran % (Auto) 0.700 Neut % (Auto) 74.5 H Lymph % (Auto) 17.2 L [place] % (Auto) 6.8 Eos % (Auto) 0.4 Baso % (Auto) 0.4 Absolute Neuts (auto) 5.4 Absolute Lymphs (auto) 1.24 Nucleated RBC % 0 D-Dimer Quant (PE/DVT) 0.30 Sodium 138 Potassium 3.9 Chloride 104 Carbon Dioxide 31.0 Anion Gap 3 L BUN 14 Creatinine 1.19 Estim Creat Clear Calc 82.06 Est GFR (MDRD) Af Amer 80 Est GFR (MDRD) Non-Af 66 BUN/Creatinine Ratio 11.8 Glucose 99 Calcium 9.5 Troponin I < 0.015 - Rhythm Strip Rhythm Strip: Sinus Rhythm Rate: 90 Ectopy: None - EKG Initial EKG Interpretation: Sinus Rhythm, No Acute Injury Pattern Prior: Unchanged - Medical Decision Making Patient was monitored in the ER for 1.5 hours. He had no recurrent symptoms, no telemetry events or ectopy. Orthostatics are negative. His D-dimer is negative ruling out acute DVT and pulmonary embolus at this time, and the rest of his tests are normal as well. His vital signs remained normal, and at this time his blood pressure is 120/85, heart rate 85, respirations 18, afebrile, pulse ox 99% on room air. As I discussed with the patient, differential also includes ectopy, nonlethal dysrhythmia, as well as esophageal disorders. Upon discussing this, he states that he does have reflux and takes famotidine every night and he forgot to tell us that. It is certainly possible that reflux and other esophageal disorders could mimic heart and lung problems and give symptoms such as the ones he described. For now I would advised taking his famotidine twice daily and following up with his doctor, he is comfortable with this plan. Upon discharge, over the phone his asked nurses to perform a Covid test because he was fatigued and dyspneic. I do not think this patient is having Covid symptoms, but I discussed all this with him and offered the test; he states he has no known exposures nor does he have worried that he could have contracted it from any particular situation recently. He declines the test right now, and states that if he feels worse he will return. I think that is reasonable. ED Disposition - Plan for ED Patient: Disposition: Home or Assisted Living Diagnosis: Episodic lightheadedness, Dyspnea Referrals: Perico Dean MD [Primary Care Provider] - 5-7 Days Additional Instructions: Consider taking your famotidine twice daily instead of just at night. Try this for 1 or 2 weeks and see if you have recurrent symptoms.
[2020-02-05 11:09] VITALS: BP 131/91; BP 139/102; BP 141/98; PULSE 120; PULSE 88; PULSE 91
[2020-02-05 11:14] LABS: Absolute Lymphocyte Count 1.24 X10^3/uL (0.83-4.51); Absolute Neutrophil Count 5.4 X10^3/uL (2.0-7.7); Basophil# 0.03 X10^3/uL; Basophil% 0.4 % (0-1); Eosinophil# 0.03 X10^3/uL; Eosinophils% 0.4 % (0-5); Hematocrit 47.1 % (40-54); Hemoglobin 15.7 g/dL (13.0-16.5); Lymphocyte # 1.24 X10^3/ul (4.0); Lymphocyte % 17.2 % (19-41); Mean Corp Hgb Conc 33.3 g/dL (32-36); Mean Corpuscular Hgb 27.4 pg (27.0-32.0); Mean Corpuscular Volume 82.3 fL (80-94); Mean Platelet Vol. 9.7 fl (6.2-12.0); Monocyte# 0.49 X10^3/uL; Monocyte% 6.8 % (0-10); NRBC Flagged by Analyzer 0 % (0-5); Neutrophil # 5.39 X10^3/uL (2.7-7.7); Neutrophil % 74.5 % (47-70); Platelet Count 200 K/mm3 (150-450); RBC Distribution Width CV 11.9 % (11.6-14.6); RBC Distribution Width SD 35.4 fl (35.1-43.9); Red Blood Count 5.72 M/mm3 (4.6-6.2); White Blood Count 7.2 K/mm3 (4.4-11.0)
[2020-02-05 11:31] LABS: Anion Gap 3 (5-15); BUN 14 mg/dL (7-18); BUN/Creat Ratio 11.8 RATIO (10-20); Calcium,Total 9.5 mg/dL (8.5-10.1); Chloride 104 mmol/L (98-107); Creatinine, Serum 1.19 mg/dL (0.70-1.30); EST Glomerular Filtration Rate 66 mL/min (>60); Est Glom Filt Rate - Afr Amer 80 mL/min (>60); Estimated Creatinine Clearance 82.06 ml/min; Glucose 99 mg/dL (74-106); Potassium 3.9 mmol/L (3.5-5.1); Sodium Level 138 mmol/L (136-145)
--- NOTE | 2020-02-05 11:38 | RAD_ITS ---
STUDY: X-RAY CHEST REASON FOR EXAM: Male, 59 years old. numbness and tingling left hand with lightheadedness TECHNIQUE: Single AP portable view of the chest. COMPARISON: 05/11/2017 FINDINGS: The lungs are clear and expanded. There is no demonstrated pleural abnormality. Normal size heart. Normal mediastinum and monster. Normal visualized pulmonary arteries. Normal visualized aortic arch and descending thoracic aorta. Normal visualized thoracic spine. Normal visualized ribs, clavicles, and shoulders. There is no demonstrated abnormality of the visualized soft tissue structures of the upper abdomen. RAD/Chest 1 View (Portable) IMPRESSION: Normal x-ray examination of the chest. Electronically Signed: Tc Hutton MD at 12:11 EST Tel , Service support ,
[2020-02-05 12:25] VITALS: BP 120/85; PULSE 85; RESP 18; O2SAT 99
--- NOTE | 2020-02-05 12:29 | ED.DEP ---
ED Disposition - Plan for ED Patient: Disposition: Home or Assisted Living Diagnosis: Episodic lightheadedness, Dyspnea Instructions: ED Dizziness, Uncertain Cause Referrals: Perico Dean MD [Primary Care Provider] - 5-7 Days Additional Instructions: Consider taking your famotidine twice daily instead of just at night. Try this for 1 or 2 weeks and see if you have recurrent symptoms.
== END 2020-02-05 12:31 | disposition home or self-care (01) ==
PROVIDERS: Emergency Provider Emergency Medicine; PCP Family Medicine
DX: R42 Dizziness and giddiness (principal); R06.00 Dyspnea, unspecified
CPT/HCPCS: 71045; 80048; 84484; 85025; 85379; 93005; 99285; A4216

== ENCOUNTER → 2020-02-17 08:57 | Outpatient (CLI) | payer OTHER, SELFPAY ==
[2020-02-05 10:52] VITALS: BMI 30.4
[2020-02-17 10:43] LABS: Cholesterol 163 mg/dL (200); High Density Lipoprotein 28 mg/dL; Triglycerides 326 mg/dL; Very Low Density Lipoprotein 65 mg/dL (5-40)
[2020-02-20 08:09] LABS: PROEL- A/G Ratio 1.5 (0.7-1.7); PROEL- Albumin 4.4 g/dL (2.9-4.4); PROEL- Alpha-1 Globulin 0.2 g/dL (0.0-0.4); PROEL- Alpha-2 Globulin 0.7 g/dL (0.4-1.0); PROEL- Gamma Globulin 1.2 g/dL (0.4-1.8); PROEL- TOTAL PROTEIN 7.4 g/dL (6.0-8.5)
[2020-02-20 09:03] LABS: Immunoglobulin E 158 IU/mL (6-495)
== END ==
LOC: MFPLAB 08:58
PROVIDERS: PCP Family Medicine; Referring Provider Family Medicine; Visit Provider Family Medicine
DX: E78.1 Pure hyperglyceridemia (principal); J30.9 Allergic rhinitis, unspecified
CPT/HCPCS: 36415; 80061; 82785; 84165

== ENCOUNTER → 2020-03-19 08:37 | Outpatient (CLI) | payer OTHER, SELFPAY ==
[2020-03-19 08:46] LABS: Bacteria 0 SEEN /hpf (None Seen); Mucous, Urine 0 SEEN /hpf (<or=2+); Red Blood Cells-Urine 0 SEEN /hpf (0-5); Squamous Epithelial Cells - UA 0 SEEN /hpf (0-5); White Blood Cells 0 SEEN /hpf (0-5)
[2020-03-19 10:18] LABS: Color, Urine Yellow (Yellow); Glucose, Dipstick Normal (Normal); Ketone-Dipstick Negative (Negative); Leukocyte Esterase-Dipstick Negative /ul (Negative); Nitrite-Dipstick Negative (Negative); Occult Blood-Urine 10 /ul (Negative); Protein-Dipstick Negative (Negative); Specific Gravity, Urine 1.015 (1.002-1.030); Urine Bilirubin Dipstick Negative (Negative); Urine Clarity Clear (Clear); Urine Urobilinogen Normal (Normal)
== END ==
PROVIDERS: PCP Family Medicine; Referring Provider Family Medicine; Visit Provider Family Medicine
DX: R31.29 Other microscopic hematuria (principal)
CPT/HCPCS: 81001

== ENCOUNTER → 2020-08-20 12:08 | Outpatient (CLI) | payer OTHER, SELFPAY | PROVIDERS: PCP Family Medicine; Visit Provider Family Medicine | DX: B34.9 Viral infection, unspecified (principal) | CPT/HCPCS: 87633; 87635; U0005; U0003 ==

== ENCOUNTER → 2020-09-16 | Outpatient (CLI) | payer OTHER, SELFPAY ==
--- NOTE | 2020-09-16 09:35 | LES_PTH ---
PATIENT: DELL[facility]IGUEZ [facility] U[id number] AGE/SX: 60/M ROOM: RE09/16/[address]: Dr. Perico Dean MD : 1960 BED: DIS: 09/16/2020 SPEC #: [id number] RECD: 09/16/20 11:52 STATUS: RONNIE REBernardo #: [id number] TOÑA: 09/16/20 09:[address]: Perico Dean DEPT: SURGICAL PATHOLOGY RECD BY: Mey Stroud Tissues: Skin of back, NOS Procedures: Surgery Specimen Level IV HEADER OPERATION: Punch biopsy PRE-OP DIAGNOSIS: Atypical nevus TISSUE SUBMITTED: Atypical nevus left back MICROSCOPIC DIAGNOSIS Atypical nevus of back, biopsy: Pigmented seborrheic keratosis. AM:fracisco 09/17/2020 COMMENT Case has been reviewed in consultation with Dr. Barrera who concurs with the above diagnosis. IDC:SJ MICROSCOPIC DESCRIPTION Slides are reviewed. GROSS DESCRIPTION Received in fixative is one container labeled with the patient's name and designated punch biopsy. The specimen consists of a punch biopsy of dark brown skin measuring 0.4 cm in diameter and 0.6 cm in length. The entire specimen is submitted in one cassette. / SJ:fracisco 09/16/20 TC:5 [facility]: [id number]
== END | disposition home or self-care (01) ==
LOC: LABSPEC 12:40
PROVIDERS: PCP Family Medicine; Referring Provider Family Medicine; Visit Provider Family Medicine
DX: D22.5 Melanocytic nevi of trunk (principal)
CPT/HCPCS: 88305

== ENCOUNTER → 2021-09-16 | Outpatient (CLI) | payer OTHER, SELFPAY ==
[2021-09-16 10:24] LABS: Absolute Lymphocyte Count 1.36 X10^3/uL (0.83-4.51); Absolute Neutrophil Count 3.8 X10^3/uL (2.0-7.7); Basophil# 0.02 X10^3/uL; Basophil% 0.4 % (0-1); Eosinophil# 0.07 X10^3/uL; Eosinophils% 1.2 % (0-5); Hematocrit 47.4 % (40-54); Hemoglobin 15.7 g/dL (13.0-16.5); Lymphocyte # 1.36 X10^3/ul (0.83-4.51); Lymphocyte % 23.8 % (19-41); Mean Corp Hgb Conc 33.1 g/dL (32-36); Mean Corpuscular Hgb 27.5 pg (27.0-32.0); Mean Corpuscular Volume 83.2 fL (80-94); Mean Platelet Vol. 10.2 fl (6.2-12.0); Monocyte# 0.45 X10^3/uL; Monocyte% 7.9 % (0-10); NRBC Flagged by Analyzer 0 % (0-5); Neutrophil # 3.79 X10^3/uL (2.7-7.7); Neutrophil % 66.3 % (47-70); Platelet Count 178 K/mm3 (150-450); RBC Distribution Width SD 36.4 fl (35.1-43.9); White Blood Count 5.7 K/mm3 (4.4-11.0)
[2021-09-16 10:52] LABS: Vitamin B12 627 pg/mL (211-911)
[2021-09-16 11:02] LABS: ALB/GLOB Ratio 1.2 RATIO (0.9-2.4); AST(SGOT) 16 U/L (15-37); Alanine Aminotransfer ALT/SGPT 35 U/L (16-61); Albumin, Serum 4.2 g/dL (3.2-5.0); Alkaline Phosphatase 48 U/L (45-117); Anion Gap 6 (5-15); BUN 19 mg/dL (7-18); BUN/Creat Ratio 16.2 RATIO (10-20); Calcium,Total 9.5 mg/dL (8.5-10.1); Chloride 105 mmol/L (98-107); Cholesterol 171 mg/dL (200); Creatinine, Serum 1.17 mg/dL (0.70-1.30); EST Glomerular Filtration Rate 67 mL/min (>60); Est Glom Filt Rate - Afr Amer 82 mL/min (>60); Globulin 3.6 g/dL (2.2-4.2); Glucose 102 mg/dL (74-106); High Density Lipoprotein 32 mg/dL; PSA,Total - Annual Screen 0.85 ng/mL (0.00-4.00); Protein, Total 7.8 g/dL (6.4-8.2); Sodium Level 137 mmol/L (136-145); Triglycerides 335 mg/dL; Very Low Density Lipoprotein 67 mg/dL (5-40)
== END | disposition home or self-care (01) ==
LOC: MFPLAB 09:09
PROVIDERS: PCP Family Medicine; Referring Provider Family Medicine; Visit Provider Family Medicine
DX: Z00.00 Encounter for general adult medical examination without abnormal findings (principal); G62.9 Polyneuropathy, unspecified; E78.1 Pure hyperglyceridemia
CPT/HCPCS: 36415; 80053; 80061; 82607; 82746; 84153; 85025; G0103

== ENCOUNTER → 2021-10-26 | Outpatient (CLI) | payer OTHER, SELFPAY ==
--- NOTE | 2021-10-26 12:50 | MASS_PTH ---
PATIENT: DELLA RODRIGUEZ [facility] U#:[id number] AGE/SX: 61/M ROOM: RE10/26/[address]: Dr. Deshaun Strickland MD : 1960 BED: DIS: 10/26/2021 SPEC #: [id number] RECD: 10/26/21 15:53 STATUS: RONNIE GARCIA #: [id number] TOÑA: 10/26/21 12:[address]: Deshaun Strickland DEPT: SURGICAL PATHOLOGY RECD BY: Alexandra Coffey ENTERED: 10/27/21 07:08 SP TYPE: Mass OTHR DR: Dr. Perico Dean MD Tissues: A - Arm, NOS B - Arm, NOS Procedures: Surgery Specimen Level III HEADER OPERATION: Excision right arm mass x2 PRE-OP DIAGNOSIS: Right arm mass x2 TISSUE SUBMITTED: A ? Right superior triceps mass, B - Right inferior triceps mass MICROSCOPIC DIAGNOSIS A. Mass of right superior triceps, excision: Mature adipose tissue consistent with angiolipoma. B. Right inferior triceps mass, excision: Mature adipose tissue consistent with angiolipoma. AM:fracisco 10/28/2021 MICROSCOPIC DESCRIPTION Slides are reviewed. GROSS DESCRIPTION A - Received in fixative is one container labeled with the patient's name and designated right superior triceps. The specimen consists of an irregular piece of adipose tissue measuring 5 x 3 x 2 cm. Sections reveal yellow adipose cut surfaces without areas of hemorrhage, necrosis or cystic degeneration. Industrial Engineering Technician sections are submitted in two cassettes. B - Received in fixative is one container labeled with the patient's name and designated right inferior triceps. The specimen consists of an irregular piece of adipose tissue measuring 3.5 x 3 x 1 cm. Sections reveal yellow adipose cut surfaces without areas of hemorrhage, necrosis or cystic degeneration. Industrial Engineering Technician sections are submitted in two cassettes. / SJ:fracisco 10/27/2021 TC:1 CPT: 98196 x2
== END | disposition home or self-care (01) ==
LOC: LABSPEC 15:56
PROVIDERS: PCP Family Medicine; Referring Provider Surgery; Visit Provider Surgery
DX: R22.31 Localized swelling, mass and lump, right upper limb (principal)
CPT/HCPCS: 88304; 88305

== ENCOUNTER → 2021-11-01 | Outpatient (CLI) | payer OTHER, SELFPAY ==
[2021-11-01 07:14] LABS: Bacteria 0 SEEN /hpf (None Seen); Mucous, Urine 0 SEEN /hpf (<or=2+); Red Blood Cells-Urine 0 SEEN /hpf (0-5); Squamous Epithelial Cells - UA 0 SEEN /hpf (0-5); White Blood Cells 0 SEEN /hpf (0-5)
[2021-11-01 10:13] LABS: Color, Urine Yellow (Yellow); Glucose, Dipstick Normal (Normal); Ketone-Dipstick Negative (Negative); Leukocyte Esterase-Dipstick Negative /ul (Negative); Nitrite-Dipstick Negative (Negative); Occult Blood-Urine Negative /ul (Negative); Protein-Dipstick Negative (Negative); Urine Bilirubin Dipstick Negative (Negative); Urine Clarity Clear (Clear); Urine Urobilinogen Normal (Normal)
== END | disposition home or self-care (01) ==
PROVIDERS: PCP Family Medicine; Referring Provider Family Medicine; Visit Provider Family Medicine
DX: R82.90 Unspecified abnormal findings in urine (principal)
CPT/HCPCS: 81001

== ENCOUNTER → 2022-10-04 | Outpatient (CLI) | payer OTHER, SELFPAY ==
[2022-10-04 08:12] LABS: Bacteria 0 SEEN /hpf (None Seen); Mucous, Urine 0 SEEN /hpf (<or=2+); Red Blood Cells-Urine 0 SEEN /hpf (0-5); Squamous Epithelial Cells - UA 0 SEEN /hpf (0-5); White Blood Cells 0 SEEN /hpf (0-5)
[2022-10-04 10:25] LABS: Absolute Lymphocyte Count 1.43 X10^3/uL (0.83-4.51); Absolute Neutrophil Count 4.3 X10^3/uL (2.0-7.7); Basophil# 0.03 X10^3/uL; Basophil% 0.5 % (0-1); Eosinophil# 0.07 X10^3/uL; Eosinophils% 1.1 % (0-5); Hematocrit 45.4 % (40-54); Hemoglobin 14.8 g/dL (13.0-16.5); Lymphocyte # 1.43 X10^3/ul (0.83-4.51); Lymphocyte % 22.6 % (19-41); Mean Corp Hgb Conc 32.6 g/dL (32-36); Mean Corpuscular Hgb 27.5 pg (27.0-32.0); Mean Corpuscular Volume 84.4 fL (80-94); Mean Platelet Vol. 10.3 fl (6.2-12.0); Monocyte# 0.48 X10^3/uL; Monocyte% 7.6 % (0-10); NRBC Flagged by Analyzer 0 % (0-5); Neutrophil # 4.29 X10^3/uL (2.7-7.7); Neutrophil % 67.6 % (47-70); Platelet Count 173 K/mm3 (150-450); RBC Distribution Width SD 36.2 fl (35.1-43.9); Red Blood Count 5.38 M/mm3 (4.6-6.2); White Blood Count 6.3 K/mm3 (4.4-11.0)
[2022-10-04 10:52] LABS: Vitamin B12 482 pg/mL (211-911)
[2022-10-04 10:54] LABS: Color, Urine Yellow (Yellow); Glucose, Dipstick Normal (Normal); Ketone-Dipstick Negative (Negative); Leukocyte Esterase-Dipstick Negative /ul (Negative); Nitrite-Dipstick Negative (Negative); Occult Blood-Urine Negative /ul (Negative); Protein-Dipstick Negative (Negative); Urine Bilirubin Dipstick Negative (Negative); Urine Clarity Clear (Clear); Urine Urobilinogen Normal (Normal)
[2022-10-04 11:18] LABS: ALB/GLOB Ratio 1.2 RATIO (0.9-2.4); AST(SGOT) 12 U/L (15-37); Alanine Aminotransfer ALT/SGPT 31 U/L (16-61); Albumin, Serum 4.1 g/dL (3.2-5.0); Alkaline Phosphatase 48 U/L (45-117); Anion Gap 6 (5-15); BUN 17 mg/dL (7-18); BUN/Creat Ratio 15.2 RATIO (10-20); Chloride 103 mmol/L (98-107); Cholesterol 177 mg/dL (200); Creatinine, Serum 1.12 mg/dL (0.70-1.30); EST Glomerular Filtration Rate 71 mL/min (>60); Est Glom Filt Rate - Afr Amer 85 mL/min (>60); Globulin 3.4 g/dL (2.2-4.2); Glucose 105 mg/dL (74-106); High Density Lipoprotein 35 mg/dL; Potassium 4.1 mmol/L (3.5-5.1); Protein, Total 7.5 g/dL (6.4-8.2); Sodium Level 136 mmol/L (136-145); Triglycerides 349 mg/dL; Very Low Density Lipoprotein 70 mg/dL (5-40)
[2022-10-04 11:38] LABS: Microalbumin,Random Urine 11.5 mg/L (NO RANGE EST.); Microalbumin:Creatinine Ratio 8.6 mg/g CRE (<30 mg/g CRE)
== END | disposition home or self-care (01) ==
PROVIDERS: PCP Family Medicine; Referring Provider Family Medicine; Visit Provider Family Medicine
DX: G62.9 Polyneuropathy, unspecified (principal); R80.9 Proteinuria, unspecified; E78.1 Pure hyperglyceridemia
CPT/HCPCS: 36415; 80053; 80061; 81001; 82043; 82570; 82607; 82746; 85025

== ENCOUNTER → 2023-04-20 | Outpatient (CLI) | payer OTHER, SELFPAY ==
--- OUTSIDE RECORDS SUMMARY | 2023-04-20 09:44 | XMS RPT_ITS | CCD ---
Author Name Unknown Address [address] [place] [address] Organization [facility] Results Test Name Value Interpretation Reference Range Facil ity Summary Purpose Family History No Family History Records Found Advance Directives No Advanced Directives Records Found Additional Source Comments (unrecognized sect ion and content) No Status Records Found INFORMATION SOURCE (unrecogn ized section and content) FOR RECORDS PERTAINING TO PATIENTS WHO ARE OR HAVE BEEN ENROLLED IN A CHEMICAL DEPENDENCY/SUBSTANCEABUSE PROGRAM, SOME INFORMATION MAY BE OMITTED. This clinical summary was aggregated from multiple sources. Caution should be exercised in using it in the provision of clinical care. This summary normalizes information from multiple sources, and as a consequence, information in this document may materially change the coding, format and clinical context of patient data. In addition, data may be omitted in some cases. CLINICAL DECISIONS SHOULD BE BASED ON THE PRIMARY CLINICAL RECORDS. [facility]. provides no warranty or guarantee of the accuracy or completeness of information in this document.
[2023-04-20 10:55] LABS: Absolute Lymphocyte Count 1.34 X10^3/uL (0.83-4.51); Absolute Neutrophil Count 3.4 X10^3/uL (2.0-7.7); Basophil# 0.02 X10^3/uL; Basophil% 0.4 % (0-1); Eosinophil# 0.07 X10^3/uL; Eosinophils% 1.3 % (0-5); Hematocrit 43.8 % (40-54); Hemoglobin 14.6 g/dL (13.0-16.5); Lymphocyte # 1.34 X10^3/ul (0.83-4.51); Lymphocyte % 25.6 % (19-41); Mean Corp Hgb Conc 33.3 g/dL (32-36); Mean Corpuscular Hgb 27.8 pg (27.0-32.0); Mean Corpuscular Volume 83.3 fL (80-94); Mean Platelet Vol. 9.8 fl (6.2-12.0); Monocyte# 0.43 X10^3/uL; Monocyte% 8.2 % (0-10); NRBC Flagged by Analyzer 0 % (0-5); Neutrophil # 3.36 X10^3/uL (2.7-7.7); Neutrophil % 64.1 % (47-70); Platelet Count 180 K/mm3 (150-450); RBC Distribution Width CV 12.1 % (11.6-14.6); RBC Distribution Width SD 36.9 fl (35.1-43.9); Red Blood Count 5.26 M/mm3 (4.6-6.2); White Blood Count 5.2 K/mm3 (4.4-11.0)
[2023-04-20 11:29] LABS: ALB/GLOB Ratio 1.4 RATIO (0.9-2.4); AST(SGOT) 15 U/L (15-37); Alanine Aminotransfer ALT/SGPT 29 U/L (16-61); Albumin, Serum 4.4 g/dL (3.2-5.0); Alkaline Phosphatase 46 U/L (45-117); Anion Gap 7 (5-15); BUN 19 mg/dL (7-18); BUN/Creat Ratio 17.1 RATIO (10-20); Calcium,Total 9.1 mg/dL (8.5-10.1); Chloride 104 mmol/L (98-107); Cholesterol 156 mg/dL (200); Creatinine, Serum 1.11 mg/dL (0.70-1.30); EST Glomerular Filtration Rate 71 mL/min (>60); Est Glom Filt Rate - Afr Amer 86 mL/min (>60); Globulin 3.1 g/dL (2.2-4.2); Glucose 99 mg/dL (74-106); High Density Lipoprotein 33 mg/dL; Potassium 3.8 mmol/L (3.5-5.1); Protein, Total 7.5 g/dL (6.4-8.2); Sodium Level 138 mmol/L (136-145); Triglycerides 266 mg/dL; Very Low Density Lipoprotein 53 mg/dL (5-40)
== END | disposition home or self-care (01) ==
PROVIDERS: PCP Family Medicine; Referring Provider Family Medicine; Visit Provider Family Medicine
DX: K76.0 Fatty (change of) liver, not elsewhere classified (principal); E78.1 Pure hyperglyceridemia; H11.31 Conjunctival hemorrhage, right eye
CPT/HCPCS: 36415; 80053; 80061; 85025

== ENCOUNTER → 2024-03-06 | Outpatient (CLI) | payer OTHER, SELFPAY ==
[2024-03-06 12:34] LABS: Prothrombin Time (Protime)PT. 13.4 SECONDS (11.7-14.9)
[2024-03-06 12:47] LABS: ALB/GLOB Ratio 1.3 RATIO (0.9-2.4); AST(SGOT) 11 U/L (15-37); Alanine Aminotransfer ALT/SGPT 22 U/L (16-61); Albumin, Serum 4.3 g/dL (3.2-5.0); Alkaline Phosphatase 46 U/L (45-117); Anion Gap 8 (5-15); BUN 14 mg/dL (7-18); BUN/Creat Ratio 13.9 RATIO (10-20); Calcium,Total 9.6 mg/dL (8.5-10.1); Chloride 105 mmol/L (98-107); Cholesterol 154 mg/dL (200); Creatinine, Serum 1.01 mg/dL (0.70-1.30); EST Glomerular Filtration Rate 79 mL/min (>60); Est Glom Filt Rate - Afr Amer 96 mL/min (>60); Globulin 3.3 g/dL (2.2-4.2); Glucose 100 mg/dL (74-106); High Density Lipoprotein 39 mg/dL; Potassium 3.9 mmol/L (3.5-5.1); Protein, Total 7.6 g/dL (6.4-8.2); Sodium Level 138 mmol/L (136-145); Triglycerides 199 mg/dL; Very Low Density Lipoprotein 40 mg/dL (5-40)
[2024-03-06 13:32] LABS: Hematocrit 44.6 % (40-54); Hemoglobin 15.1 g/dL (13.0-16.5); Mean Corp Hgb Conc 33.9 g/dL (32-36); Mean Corpuscular Hgb 27.7 pg (27.0-32.0); Mean Corpuscular Volume 81.8 fL (80-94); Mean Platelet Vol. 10.6 fl (6.2-12.0); Platelet Count 177 K/mm3 (150-450); RBC Distribution Width CV 12.1 % (11.6-14.6); RBC Distribution Width SD 36.1 fl (35.1-43.9); Red Blood Count 5.45 M/mm3 (4.6-6.2); White Blood Count 4.6 K/mm3 (4.4-11.0)
[2024-03-07 04:07] LABS: GGTP 13 IU/L (0-65)
== END | disposition home or self-care (01) ==
LOC: MTLAB 09:32
PROVIDERS: PCP Family Medicine; Referring Provider Family Medicine; Visit Provider Family Medicine
DX: E78.1 Pure hyperglyceridemia (principal); K76.0 Fatty (change of) liver, not elsewhere classified; Z12.5 Encounter for screening for malignant neoplasm of prostate
CPT/HCPCS: 36415; 80053; 80061; 82977; 84153; 85027; 85610; G0103

== ENCOUNTER → 2024-09-03 | Outpatient (CLI) | payer OTHER, SELFPAY ==
[2024-09-03 11:44] LABS: AST(SGOT) 15 U/L (<=37); Alanine Aminotransfer ALT/SGPT 18 U/L (<=46); Albumin, Serum 4.6 g/dL (3.4-4.8); Alkaline Phosphatase 50 U/L (40-129); Anion Gap 12 (5-15); BUN 17 mg/dL (4-19); BUN/Creat Ratio 15.4 RATIO (10-20); Calcium,Total 9.5 mg/dL (7.6-11.0); Carbon Dioxide 23.6 mmol/L (21.0-32.0); Chloride 104 mmol/L (98-108); Cholesterol 155 mg/dL (<=200); Globulin 2.6 g/dL (2.2-4.2); Glucose 103 mg/dL (70-99); Low Density Lipoprotein Calc. 72 mg/dL; Potassium 4.0 mmol/L (3.3-5.1); Triglycerides 255 mg/dL; Very Low Density Lipoprotein 51 mg/dL (5-40); cholesterol:hdl ratio screen 4.83
== END | disposition home or self-care (01) ==
LOC: MTLAB 08:10
PROVIDERS: PCP Family Medicine; Referring Provider Family Medicine; Visit Provider Family Medicine
DX: E78.1 Pure hyperglyceridemia (principal)
CPT/HCPCS: 36415; 80053; 80061